=== PATIENT | female | born 1995 | race Caucasian/White ===

== ENCOUNTER 2017-05-04 22:55 | Emergency (ER) | payer OTHER ==
--- NOTE | 2017-05-05 02:05 | ED CLINICAL REPORT ---
Clinical Report - Physicians/Mid Levels [facility] [address] [place] [address] 05/04/2017 22:56 Patient: CAM SAMANIEGO Time Seen: 23:30 May 04 2017. Arrived- By private vehicle. Historian- patient. CPT: ER phys charges level 4 (#[id number]). 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 Describes the quality as stabbing, cramping and pressure. Relates location as in the upper abdomen. Notes pain level as 7/10 on arrival and 10/10 at maximum. ( Pt was seen at the clinic today and diagnosed with heartburn, states she doesn't believe it is heartburn. Her back and stomach started hurting Sunday and moved to her stomach and gave her nausea. The clinic ran a urine sample, which patient states was clear.). The patient has had nausea, vomiting, abdominal pain and back pain. She has had constipation (yesterday was last bowel movement). No diarrhea or fever. and is still present. It is described as "pain", sharp and stabbing and it is described as located in the epigastric area. At its maximum, severity described as moderate. When seen in the E.D., severity described as moderate. Modifying factors. Not worsened by anything. Not relieved by anything. The patient has had nausea and vomiting. No recent travel. Similar symptoms previously: None. Recent medical care: The patient was seen recently at another facility in a clinic (today). Seen for similar symptoms. Diagnosis: gastritis. REVIEW OF SYSTEMS The patient has had constipation and back pain. No difficulty with urination, pain with urination, urinary frequency, missed periods or fever. No sore throat, chest pain, difficulty breathing, cough or joint pain. No skin rash or chills. Denies current . All systems otherwise negative, except as recorded above. PAST HISTORY Gastroesophageal reflux disease. No history of diabetes mellitus. No history of peptic ulcer disease or gallstones. Immunizations: up-to-date. Last normal menstrual period- April 13. Denies current . Medications: Ranitidine HCl Oral 150 mg, 2x a day. Allergies: None. SOCIAL HISTORY Never smoker. No alcohol use or drug use. ADDITIONAL NOTES The nursing notes have been reviewed. PHYSICAL EXAM Vital Signs: 05/04/2017 23:11 BP: 121/65. HR: 89. RR: 17. O2 saturation: 99%. Temp: 97.8 F. Appearance: Alert. Anxious. Patient in mild distress. Eyes: Eyes normal inspection. ENT: Pharynx normal. Neck: Normal inspection. CVS: Normal heart rate and rhythm. Heart sounds normal. Pulses normal. Respiratory: No respiratory distress. Breath sounds normal. Chest nontender. Abdomen: Soft. Mild tenderness in the epigastric area. Bowel sounds normal. Back: Normal inspection. No CVA tenderness. Skin: Skin warm. Normal skin color. No rash. Extremities: Extremities exhibit normal ROM. No lower extremity edema. Neuro: Oriented X 3. No motor deficit. No sensory deficit. Reflexes normal. LABS, X-RAYS, AND EKG Laboratory Tests: Lipase: (EVETTE: 05/05/2017 00:00) ( [facility] 05/05/2017 00:16) Final results Test Result Flag Units (Reference) LIPASE 148 U/L (73-393) AMYLASE 63 U/L (25-115) UA-Culture if indicated: (EVETTE: 05/04/2017 23:10) ( [facility] 05/04/2017 23:46) Final results Test Result Flag Units (Reference) URINE COLOR YELLOW URINE APPEARANCE CLEAR URINE GLUCOSE NEGATIVE (NEGATIVE) URINE BILIRUBIN NEGATIVE (NEGATIVE) URINE KETONE NEGATIVE (NEGATIVE) URINE SPECIFIC GRAVITY >= 1.030 (1.010-1.030) URINE PH 5.5 (5.0-8.0) URINE PROTEIN NEGATIVE (NEGATIVE) URINE UROBILINOGEN 0.2 EU/dL (0.2-1.0) URINE NITRITE NEGATIVE (NEGATIVE) URINE BLOOD NEGATIVE (NEGATIVE) URINE LEUK ESTERASE NEGATIVE (NEGATIVE) URINE RBC 0-1 rbc/hpf (0-1) URINE WBC RARE wbc/hpf (0-1) URINE EPITHELIAL CELLS 0-1 EPI/hpf (0-5) URINE BACTERIA NONE SEEN (NONE SEEN) URINE COMMENT CULT NOT INDICATED URINE CULTURES ARE SET-UP BASED ON THE FOLLOWING CRITERIA:POSITIVE NITRITEPOSITIVE LEUKOCYTE ESTERASEGREATER THAN 10 WHITE BLOOD CELLSMODERATE (2+) OR GREATER BACTERIA Urine: (EVETTE: 05/04/2017 23:10) ( [facility] 05/04/2017 23:40) Final results Test Result Flag Units (Reference) URINE NEGATIVE CBC w Diff: (EVETTE: 05/04/2017 23:23) ( [facility] 05/04/2017 23:43) Final results Test Result Flag Units (Reference) WHITE BLOOD COUNT 15.0 H K/uL (4.5-11.5) RED BLOOD COUNT 4.46 M/uL (4.00-5.20) HEMOGLOBIN 13.5 gm/dL (12.0-16.0) HEMATOCRIT 39.4 % (36.0-46.0) MEAN CELL VOLUME 88 fL (80-100) MEAN CORPUSCULAR HGB 30 pg (26-34) MEAN CORPUSCULAR HGB CONC 34 g/dL (31-37) RED CELL DISTRIBUTION WIDTH 12.4 % (11.6-14.8) PLATELET COUNT 206 K/uL (150-400) LYMPH % 22.3 L % (25-40) MONO % 5.5 % (3-14) GRANULOCYTE % 72.2 (53-90) CMP: (EVETTE: 05/04/2017 23:23) ( [facility] 05/04/2017 23:46) Final results Test Result Flag Units (Reference) GLUCOSE 106 mg/dL (70-110) BUN 8 mg/dL (7-18) CREATININE 0.7 mg/dL (0.6-1.3) Estimated GFR >60 mL/min Estimated GFR- >60 mL/min Note: Persistent reduction over 3 months in eGFR<60 mL/min/1.73 m2 defines CKD. Patients with eGFR values>=60 mL/min/1.73 m2 may also have CKD if evidence ofpersistent proteinuria. Additional information may be foundat www.kidney.org. SODIUM 140 mmol/L (136-145) POTASSIUM 3.8 mmol/L (3.5-5.1) CHLORIDE 107 mmol/L (98-107) CARBON DIOXIDE 24 mmol/L (21-32) CALCIUM 8.8 mg/dL (8.5-10.1) TOTAL PROTEIN 7.3 g/dL (6.4-8.2) ALBUMIN 3.5 g/dL (3.3-5.0) BILIRUBIN, TOTAL 0.3 mg/dL (0.0-1.0) ALKALINE PHOSPHATASE 118 H U/L (46-116) AST (SGOT) 12 L U/L (15-37) ALT (SGPT) 28 U/L (12-78) . PROGRESS AND PROCEDURES Course of Care: Pt passed gas and stool in the Er and symptoms resolved. Patient is stable. The patient's symptoms are now gone. Patient/family counseled. Disposition: Discharged. Condition: stable and improved. CLINICAL IMPRESSION Functional abdominal pain: resolved Dehydration. INSTRUCTIONS Drink plenty of fluids. (Miralax, possibly magnesium citrate, 1 bottle.). Warnings: Further evaluation is necessary. GENERAL WARNINGS: Return or contact your physician immediately if your condition worsens or changes unexpectedly, if not improving as expected, or if other problems arise. Your Current Medications: CONTINUE TAKING THE FOLLOWING MEDICATIONS: Ranitidine HCl Oral : 150 mg 2x a day. Follow-up: Follow up with your doctor in one week. Call for an appointment. Understanding of the discharge instructions verbalized by patient and family. (Electronically signed by Adebayo Gaytan MD 05/06/2017 7:30)
--- NOTE | 2017-05-05 02:05 | ED CLINICAL REPORT ---
Clinical Report - Physicians/Mid Levels [facility] [address] [place] [address] 05/04/2017 22:56 Patient: CAM SAMANIEGO Time Seen: 23:30 May 04 2017. Arrived- By private vehicle. Historian- patient. CPT: ER phys charges level 4 (#[id number]). 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 Describes the quality as stabbing, cramping and pressure. Relates location as in the upper abdomen. Notes pain level as 7/10 on arrival and 10/10 at maximum. ( Pt was seen at the clinic today and diagnosed with heartburn, states she doesn't believe it is heartburn. Her back and stomach started hurting Sunday and moved to her stomach and gave her nausea. The clinic ran a urine sample, which patient states was clear.). The patient has had nausea, vomiting, abdominal pain and back pain. She has had constipation (yesterday was last bowel movement). No diarrhea or fever. and is still present. It is described as "pain", sharp and stabbing and it is described as located in the epigastric area. At its maximum, severity described as moderate. When seen in the E.D., severity described as moderate. Modifying factors. Not worsened by anything. Not relieved by anything. The patient has had nausea and vomiting. No recent travel. Similar symptoms previously: None. Recent medical care: The patient was seen recently at another facility in a clinic (today). Seen for similar symptoms. Diagnosis: gastritis. REVIEW OF SYSTEMS The patient has had constipation and back pain. No difficulty with urination, pain with urination, urinary frequency, missed periods or fever. No sore throat, chest pain, difficulty breathing, cough or joint pain. No skin rash or chills. Denies current . All systems otherwise negative, except as recorded above. PAST HISTORY Gastroesophageal reflux disease. No history of diabetes mellitus. No history of peptic ulcer disease or gallstones. Immunizations: up-to-date. Last normal menstrual period- April 13. Denies current . Medications: Ranitidine HCl Oral 150 mg, 2x a day. Allergies: None. SOCIAL HISTORY Never smoker. No alcohol use or drug use. ADDITIONAL NOTES The nursing notes have been reviewed. PHYSICAL EXAM Vital Signs: 05/04/2017 23:11 BP: 121/65. HR: 89. RR: 17. O2 saturation: 99%. Temp: 97.8 F. Appearance: Alert. Anxious. Patient in mild distress. Eyes: Eyes normal inspection. ENT: Pharynx normal. Neck: Normal inspection. CVS: Normal heart rate and rhythm. Heart sounds normal. Pulses normal. Respiratory: No respiratory distress. Breath sounds normal. Chest nontender. Abdomen: Soft. Mild tenderness in the epigastric area. Bowel sounds normal. Back: Normal inspection. No CVA tenderness. Skin: Skin warm. Normal skin color. No rash. Extremities: Extremities exhibit normal ROM. No lower extremity edema. Neuro: Oriented X 3. No motor deficit. No sensory deficit. Reflexes normal. LABS, X-RAYS, AND EKG Laboratory Tests: Lipase: (EVETTE: 05/05/2017 00:00) ( [facility] 05/05/2017 00:16) Final results Test Result Flag Units (Reference) LIPASE 148 U/L (73-393) AMYLASE 63 U/L (25-115) UA-Culture if indicated: (EVETTE: 05/04/2017 23:10) ( [facility] 05/04/2017 23:46) Final results Test Result Flag Units (Reference) URINE COLOR YELLOW URINE APPEARANCE CLEAR URINE GLUCOSE NEGATIVE (NEGATIVE) URINE BILIRUBIN NEGATIVE (NEGATIVE) URINE KETONE NEGATIVE (NEGATIVE) URINE SPECIFIC GRAVITY >= 1.030 (1.010-1.030) URINE PH 5.5 (5.0-8.0) URINE PROTEIN NEGATIVE (NEGATIVE) URINE UROBILINOGEN 0.2 EU/dL (0.2-1.0) URINE NITRITE NEGATIVE (NEGATIVE) URINE BLOOD NEGATIVE (NEGATIVE) URINE LEUK ESTERASE NEGATIVE (NEGATIVE) URINE RBC 0-1 rbc/hpf (0-1) URINE WBC RARE wbc/hpf (0-1) URINE EPITHELIAL CELLS 0-1 EPI/hpf (0-5) URINE BACTERIA NONE SEEN (NONE SEEN) URINE COMMENT CULT NOT INDICATED URINE CULTURES ARE SET-UP BASED ON THE FOLLOWING CRITERIA:POSITIVE NITRITEPOSITIVE LEUKOCYTE ESTERASEGREATER THAN 10 WHITE BLOOD CELLSMODERATE (2+) OR GREATER BACTERIA Urine: (EVETTE: 05/04/2017 23:10) ( [facility] 05/04/2017 23:40) Final results Test Result Flag Units (Reference) URINE NEGATIVE CBC w Diff: (EVETTE: 05/04/2017 23:23) ( [facility] 05/04/2017 23:43) Final results Test Result Flag Units (Reference) WHITE BLOOD COUNT 15.0 H K/uL (4.5-11.5) RED BLOOD COUNT 4.46 M/uL (4.00-5.20) HEMOGLOBIN 13.5 gm/dL (12.0-16.0) HEMATOCRIT 39.4 % (36.0-46.0) MEAN CELL VOLUME 88 fL (80-100) MEAN CORPUSCULAR HGB 30 pg (26-34) MEAN CORPUSCULAR HGB CONC 34 g/dL (31-37) RED CELL DISTRIBUTION WIDTH 12.4 % (11.6-14.8) PLATELET COUNT 206 K/uL (150-400) LYMPH % 22.3 L % (25-40) MONO % 5.5 % (3-14) GRANULOCYTE % 72.2 (53-90) CMP: (EVETTE: 05/04/2017 23:23) ( [facility] 05/04/2017 23:46) Final results Test Result Flag Units (Reference) GLUCOSE 106 mg/dL (70-110) BUN 8 mg/dL (7-18) CREATININE 0.7 mg/dL (0.6-1.3) Estimated GFR >60 mL/min Estimated GFR- >60 mL/min Note: Persistent reduction over 3 months in eGFR<60 mL/min/1.73 m2 defines CKD. Patients with eGFR values>=60 mL/min/1.73 m2 may also have CKD if evidence ofpersistent proteinuria. Additional information may be foundat www.kidney.org. SODIUM 140 mmol/L (136-145) POTASSIUM 3.8 mmol/L (3.5-5.1) CHLORIDE 107 mmol/L (98-107) CARBON DIOXIDE 24 mmol/L (21-32) CALCIUM 8.8 mg/dL (8.5-10.1) TOTAL PROTEIN 7.3 g/dL (6.4-8.2) ALBUMIN 3.5 g/dL (3.3-5.0) BILIRUBIN, TOTAL 0.3 mg/dL (0.0-1.0) ALKALINE PHOSPHATASE 118 H U/L (46-116) AST (SGOT) 12 L U/L (15-37) ALT (SGPT) 28 U/L (12-78) . PROGRESS AND PROCEDURES Course of Care: Pt passed gas and stool in the Er and symptoms resolved. Patient is stable. The patient's symptoms are now gone. Patient/family counseled. Disposition: Discharged. Condition: stable and improved. CLINICAL IMPRESSION Functional abdominal pain: resolved Dehydration. INSTRUCTIONS Drink plenty of fluids. (Miralax, possibly magnesium citrate, 1 bottle.). Warnings: Further evaluation is necessary. GENERAL WARNINGS: Return or contact your physician immediately if your condition worsens or changes unexpectedly, if not improving as expected, or if other problems arise. Your Current Medications: CONTINUE TAKING THE FOLLOWING MEDICATIONS: Ranitidine HCl Oral : 150 mg 2x a day. Follow-up: Follow up with your doctor in one week. Call for an appointment. Understanding of the discharge instructions verbalized by patient and family. (Electronically signed by Adebayo Gaytan MD 05/06/2017 7:30)
--- NOTE | 2017-05-05 02:05 | ED NURSING NOTES ---
Clinical Report - Nurses [facility] [address] [place] [address] 05/04/2017 22:56 Patient: CAM SAMANIEGO TRIAGE Triage time 23:00 May 04 2017. Acuity: LEVEL 3. Chief Complaint: ABDOMINAL PAIN. 23:11 05/04/17. Alert. No acute distress. SEPSIS SCREEN: Sepsis Screen. Negative (no infection suspected/documented). ENOC COMA SCORE: [place] Coma Scale: 15- eyes open spontaneously (4); best verbal response- oriented x 4 (5); best motor response- obeys commands (6). --23:11 Carmen Ho 23:11 05/04/17. BP: 121/65. HR: 89. RR: 17. O2 saturation: 99%. Temp: 97.8 F. Pain level now 7/10. --23:11 Carmen Ho. Weight: 68 kg stated. Height/Length: 63 inches Per Patient. BMI: 26.6. --23:08 Carmen Ho. Medications Ranitidine HCl Oral 150 mg, 2x a day. --23:02 Carmen Ho The following entry was struck by Carmen Ho, 23:08 (05/04/17) Reason - other. <<STRICKEN ENTRY-- Hydrocortisone External. --23:03 Carmen Ho --END STRIKE>> The following entry was struck by Carmen Ho, 23:08 (05/04/17) Reason - other. <<STRICKEN ENTRY-- Ketoconazole External. --23:03 Carmen Ho --END STRIKE>> The following entry was struck by Carmen Ho, 23:08 (05/04/17) Reason - other. <<STRICKEN ENTRY-- Clotrimazole External. --23:03 Carmen Ho --END STRIKE>> The following entry was struck by Carmen Ho, 23:08 (05/04/17) Reason - other. <<STRICKEN ENTRY-- Medroxyprogesterone Acetate Intramuscular. --23:03 Carmen Ho --END STRIKE>>. Medication/allergy information source: the patient. --23:11 Carmen Ho. Allergies None. --23:04 Carmen Ho. History Arrived by private vehicle. Historian: patient. Accompanied by family and mother and sister. Primary physician (May). Onset. (Sunday). Describes the quality as stabbing, cramping and pressure. Relates location as in the upper abdomen. Notes pain level as 7/10 on arrival and 10/10 at maximum. ( Pt was seen at the clinic today and diagnosed with heartburn, states she doesn't believe it is heartburn. Her back and stomach started hurting Sunday and moved to her stomach and gave her nausea. The clinic ran a urine sample, which patient states was clear.). The patient has had nausea, vomiting, abdominal pain and back pain. She has had constipation (yesterday was last bowel movement). No diarrhea or fever. 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 PAST MEDICAL HX: Gastroesophageal reflux disease. No history of diabetes mellitus. No history of peptic ulcer disease or gallstones. Immunizations: up-to-date. Last normal menstrual period- April 13. Denies current . SOCIAL HX: Never smoker. No alcohol use or drug use. No recent travel. No known contact with a sick individual. FALL RISK ASSESSMENT: Fall risk assessment completed. No fall risk identified. NUTRITIONAL RISK ASSESSMENT: The nutritional risk assessment revealed no deficiencies. FUNCTIONAL ASSESSMENT: Functional assessment: no impairments noted. LEARNING NEEDS ASSESSMENT: The learning needs assessment revealed no barriers. SKIN INTEGRITY ASSESSMENT: Skin integrity risk assessment completed. No skin integrity risk identified. --23:11 Carmen Ho. PROBLEMS: Esophagitis. --23:04 Carmen Ho. Assessment The patient states feels the same. --23:11 Carmen Ho. Interventions ID band on patient. --23:11 Carmen Ho. PHYSICAL ASSESSMENT 23:12 05/04/17. Ambulatory to room. Patient gowned. GENERAL / NEURO / PSYCH: Alert. Oriented X 4. Appears in no acute distress. HEENT: Mucous membranes are pink. RESPIRATORY: Respirations not labored. CVS: Capillary refill less than 2 seconds. GI / : Abdomen soft. Abdominal tenderness in the upper abdomen. SKIN: Skin is warm and dry. --23:12 Carmen Ho. NURSING PROGRESS NOTES 23:05/04/17. The plan of care for this patient has been created. Pulse oximeter and NIBP monitor placed on patient; monitor alarms on. Patient gowned. Head of bed elevated. Reassurance given. Two patient identifiers checked. Call light placed in reach. Side rails up x 1. Bed placed in lowest position. Brakes of bed on. Patient ready for evaluation- chart flagged and ED physician notified. --23:12 Carmen Ho 23:14 05/04/17. Patient ID band checked for patient name and birthdate: patient confirmed. Instructions provided to collect clean catch urine and patient verbalized understanding. Clean catch urine collected with return of yellow-colored clear urine; sample sent to lab. Specimen labeled in the presence of the patient. --23:14 Carmen Ho 23:26 05/04/2017 Site #1 started via IV in the right antecubital space with an 20g angiocath, with aseptic technique and good blood return; one attempt. Blood drawn: rainbow set. Labeled in the presence of the patient and sent to the lab. Saline lock flushed with 10 mL saline. --23:26 Carmen Ho 00:13 05/05/2017 Started bag #1 1000 mL IV Fluids IV NS (Saline); at 500 mL/hr over 30 minute(s) via site #1 via IV pump. Allergies verified and confirmed 5 rights. IV patency established. IV site checked: no pain, redness, or swelling. IV flushed thoroughly pre- and post-medication administration. --00:15 Carmen Ho 00:16 05/05/2017 Zofran (Ondansetron HCl) IVP 4 mg given over 30 second(s) via site #1. Allergies verified and confirmed 5 rights. IV patency established. IV site checked: no pain, redness, or swelling. IV flushed thoroughly pre- and post-medication administration. IVP given by RN. --00:16 Carmen Ho 00:17 05/05/17. BP: 120/72. HR: 95. RR: 14. O2 saturation: 99%. Pain level now 02/26. --00:17 Carmen Ho 00:31 05/05/17. ( Pt states symptoms are gone, pt will inform RN of return of pain to take GI cocktail.). --00:31 Carmen Ho 00:31 05/05/17. Pain level now 010. --00:31 Carmen Ho 01:13 05/05/17. Care transferred and report given (CAMPBELL Otero). 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 --01:36 Estela Hdz 02:40 05/05/2017 IV Fluids IV NS Discontinued: bag #1 completed upon discharge. Total amount infused: 1000 mL. IV patency established. IV site checked: no pain, redness, or swelling. IV flushed thoroughly. --04:58 Millie Ospina. DISPOSITION / DISCHARGE 02:40 05/05/17. BP: 110/65. HR: 97. RR: 20. O2 saturation: 100% on room air. Temp: deferred. Pain level now: 02/26. --04:55 Millie Ospina 02:35 05/05/2017 Site #1 removed upon discharge. Catheter intact. Bandaid applied. --04:55 Millie Ospina 02:40 05/05/17. Condition at departure: stable. The goals identified in the patient's plan of care were met. No learning barriers present. Discharge instructions provided and reviewed with the patient and family. Reviewed need for increased fluid intake. Patient verbalized understanding. Written instructions provided in [place]. ( Increase your fluids, the provider suggest you may want to take mag citrate or miralax to produce a bowel movement. Discussed diet options to promote regularity. Follow up with your PCP in one week. Return if your symptoms worsen despite rest and fluids. Patient and family verbalized understanding and had no additional questions at this time.). The patient was discharged by the physician. She was discharged home and accompanied by family. She left the Emergency Department ambulatory and via private vehicle. Family member driving. FALL RISK ASSESSMENT: Fall risk assessment completed. No fall risk identified. --04:55 Millie Ospina. Locked/Released at 05/05/2017 4:58 by Millie Ospina,
--- NOTE | 2017-05-05 02:05 | ED ORDER SUMMARY ---
..... Patient: CAM SAMANIEGO OrderSheet [facility] VisitID: [id number] [place] [address] 22y, F Registration Date/Time: 05/04/2017 ORDER SHEET Weight: 68.0 kg (stated) Allergies: None GENERAL ORDERS: UA-Culture if indicated Urgent (23:05/04/2017 ASchmuck per protocol) (Ack 23:28 RKaruga) (23:54 ASchmuck) Urine Urgent (23:05/04/2017 ASchmuck per protocol) (Ack 23:28 RKaruga) (23:54 ASchmuck) CMP Urgent (23:05/04/2017 ASchmuck per protocol) (Ack 23:29 RKaruga) (23:54 ASchmuck) CBC w Diff Urgent (23:05/04/2017 ASchmuck per protocol) (Ack 23:29 RKaruga) (23:54 ASchmuck) Lipase Urgent (00:00 05/05/2017 Medina VIDES) (Ack 0:04 RKaruga) (0:15 ASchmuck) Amylase Urgent (00:05/05/2017 Medina VIDES) (Ack 0:04 RKaruga) (0:15 ASchmuck) US Abdomen Limited (Yes) Urgent (00:05/05/2017 Medina VIDES) (Ack 0:04 RKaruga) (1:46 CBradburn R.N.) MEDICATION ORDERS: GI Cocktail WHITE PO 50 mL (after zofran working) (23:05/04/2017 Medina VIDES) (Ack 0:03 ASchmuck) (Cancelled: Change in patient condition4:57 HSoule) IV FLUIDS: IV NS : initial bolus 500 mL (1000 mL/hr), then 250 mL/hr for 3h (NOW); Routine (:05/04/2017 Medina VIDES) (Ack 0:03 ASchmuck) (0:15 ASchmuck) Zofran IV 4 mg (NOW) (:05/04/2017 Medina VIDES) (Ack 0:03 ASchmuck) (0:16 ASchmuck) ORDER SHEET NOTES: [Electronically signed by Millie Ospina (04:58 05/05/2017)] [Electronically signed by Adebayo Gaytan MD (07:30 05/06/2017)] [Electronically locked/signed by Millie Ospina (04:58 05/05/2017)]
--- NOTE | 2017-05-05 02:05 | ED ORDER SUMMARY ---
..... Patient: CAM SAMANIEGO OrderSheet [facility] VisitID: [id number] [place] [address] 22y, F Registration Date/Time: 05/04/2017 ORDER SHEET Weight: 68.0 kg (stated) Allergies: None GENERAL ORDERS: UA-Culture if indicated Urgent (23:05/04/2017 ASchmuck per protocol) (Ack 23:28 RKaruga) (23:54 ASchmuck) Urine Urgent (23:05/04/2017 ASchmuck per protocol) (Ack 23:28 RKaruga) (23:54 ASchmuck) CMP Urgent (23:05/04/2017 ASchmuck per protocol) (Ack 23:29 RKaruga) (23:54 ASchmuck) CBC w Diff Urgent (23:05/04/2017 ASchmuck per protocol) (Ack 23:29 RKaruga) (23:54 ASchmuck) Lipase Urgent (00:00 05/05/2017 Medina VIDES) (Ack 0:04 RKaruga) (0:15 ASchmuck) Amylase Urgent (00:05/05/2017 Medina VIDES) (Ack 0:04 RKaruga) (0:15 ASchmuck) US Abdomen Limited (Yes) Urgent (00:05/05/2017 Mdeina VIDES) (Ack 0:04 RKaruga) (1:46 CBradburn R.N.) MEDICATION ORDERS: GI Cocktail WHITE PO 50 mL (after zofran working) (23:05/04/2017 Medina VIDES) (Ack 0:03 ASchmuck) (Cancelled: Change in patient condition4:57 HSoule) IV FLUIDS: IV NS : initial bolus 500 mL (1000 mL/hr), then 250 mL/hr for 3h (NOW); Routine (:05/04/2017 Medina VIDES) (Ack 0:03 ASchmuck) (0:15 ASchmuck) Zofran IV 4 mg (NOW) (:05/04/2017 Medina VIDES) (Ack 0:03 ASchmuck) (0:16 ASchmuck) ORDER SHEET NOTES: [Electronically signed by Millie Ospina (04:58 05/05/2017)] [Electronically signed by Adebayo Gaytan MD (07:30 05/06/2017)] [Electronically locked/signed by Millie Ospina (04:58 05/05/2017)]
--- NOTE | 2017-05-05 05:43 | DIAGNOSTIC IMAGING REPORT ---
PROCEDURE: US ABDOMEN ULTRASOUND-LIMITED INDICATION: RUQ PAIN TECHNIQUE: Crocker scale and color Doppler sonographic images of the abdomen were obtained. COMPARISON: None. FINDINGS: Gallbladder is normal. No evidence of gallstones. Common duct is normal (2 mm). Pancreas is obscured by bowel gas. Portions of the liver, aorta, and right kidney are seen, and are normal. IMPRESSION: 1. Negative ultrasound of the gallbladder and right upper quadrant.
--- NOTE | 2017-05-06 07:30 | ED MAR SUMMARY ---
..... Medication Administration Record [facility] [address] [place] [address] Patient: CAM SAMANIEGO Visit ID: [id number] 22y, F Weight: 68.0 kg Height/Length: 63 in BMI: 26.6 ALLERGIES: None Start 00:13 05/05/2017 Carmen Ho,, Stop 02:40 05/05/2017 Millie Ospina, Medication Administered: IV NS (SALINE), Dose: IV Fluids over 30 minute(s), Rate: 500 mL/hr, Dispensed: 1000 mL bag, Site: #1 right AC. Medication Ordered: IV NS : initial bolus 500 mL (1000 mL/hr), then 250 mL/hr for 3h (NOW); Routine. Given 00:16 05/05/2017 Carmen Ho, Medication Administered: ZOFRAN [IVP] (ONDANSETRON HCL), Dose: 4 mg IVP over 30 second(s), Site: #1 right AC. Medication Ordered: Zofran IV 4 mg (NOW).
--- NOTE | 2017-05-06 07:30 | ED DISCHARGE INSTRUCTIONS ---
Patient: CAM SAMANIEGO General Instructions [facility] VisitID: [id number] [address] [place] [address] 22y, F Registration Date/Time: 05/04/2017 Functional abdominal pain: resolved Dehydration. INSTRUCTIONS Drink plenty of fluids. (Miralax, possibly magnesium citrate, 1 bottle.). Warnings: Further evaluation is necessary. GENERAL WARNINGS: Return or contact your physician immediately if your condition worsens or changes unexpectedly, if not improving as expected, or if other problems arise. Your Current Medications: CONTINUE TAKING THE FOLLOWING MEDICATIONS: Ranitidine HCl Oral : 150 mg 2x a day. Follow-up: Follow up with your doctor in one week. Call for an appointment. Understanding of the discharge instructions verbalized by patient and family. (Electronically signed by Adebayo Gaytan MD 05/06/2017 7:30)
--- NOTE | 2017-05-06 07:30 | ED MED RECONCILIATION SUMMARY ---
Patient: CAM SAMANIEGO Medication Reconciliation Report [facility] VisitID: [id number] [address] [place] [address] 22y, F Registration Date/Time: 05/04/2017 Weight: 68.0 kg Height/Length: 63 in. BMI: 26.6 ALLERGIES: None The patient's Home Medications are listed below: CONTINUE TAKING THE FOLLOWING MEDICATIONS: Ranitidine HCl Oral 150 mg, 2x a day The source(s) of the original Home Medication information: patient The following Medications were given to the patient in the Emergency Department: IV NS IV Fluids bolus 0, then 500 mL/hr, administered: 05/05/2017 12:13:00 AM Zofran [IVP] IVP 4 mg, administered: 05/05/2017 12:16:00 AM The following Medications were prescribed to the patient: None.
--- NOTE | 2017-05-06 07:30 | ED MAR SUMMARY ---
..... Medication Administration Record [facility] [address] [place] [address] Patient: CAM SAMANIEGO Visit ID: [id number] 22y, F Weight: 68.0 kg Height/Length: 63 in BMI: 26.6 ALLERGIES: None Start 00:13 05/05/2017 Carmen Ho,, Stop 02:40 05/05/2017 Millie Ospina, Medication Administered: IV NS (SALINE), Dose: IV Fluids over 30 minute(s), Rate: 500 mL/hr, Dispensed: 1000 mL bag, Site: #1 right AC. Medication Ordered: IV NS : initial bolus 500 mL (1000 mL/hr), then 250 mL/hr for 3h (NOW); Routine. Given 00:16 05/05/2017 Carmen Ho, Medication Administered: ZOFRAN [IVP] (ONDANSETRON HCL), Dose: 4 mg IVP over 30 second(s), Site: #1 right AC. Medication Ordered: Zofran IV 4 mg (NOW).
--- NOTE | 2017-05-06 07:30 | ED DISCHARGE INSTRUCTIONS ---
Patient: CAM SAMANIEGO General Instructions [facility] VisitID: [id number] [address] [place] [address] 22y, F Registration Date/Time: 05/04/2017 Functional abdominal pain: resolved Dehydration. INSTRUCTIONS Drink plenty of fluids. (Miralax, possibly magnesium citrate, 1 bottle.). Warnings: Further evaluation is necessary. GENERAL WARNINGS: Return or contact your physician immediately if your condition worsens or changes unexpectedly, if not improving as expected, or if other problems arise. Your Current Medications: CONTINUE TAKING THE FOLLOWING MEDICATIONS: Ranitidine HCl Oral : 150 mg 2x a day. Follow-up: Follow up with your doctor in one week. Call for an appointment. Understanding of the discharge instructions verbalized by patient and family. (Electronically signed by Adebayo Gaytan MD 05/06/2017 7:30)
--- NOTE | 2017-05-06 07:30 | ED MED RECONCILIATION SUMMARY ---
Patient: CAM SAMANIEGO Medication Reconciliation Report [facility] VisitID: [id number] [address] [place] [address] 22y, F Registration Date/Time: 05/04/2017 Weight: 68.0 kg Height/Length: 63 in. BMI: 26.6 ALLERGIES: None The patient's Home Medications are listed below: CONTINUE TAKING THE FOLLOWING MEDICATIONS: Ranitidine HCl Oral 150 mg, 2x a day The source(s) of the original Home Medication information: patient The following Medications were given to the patient in the Emergency Department: IV NS IV Fluids bolus 0, then 500 mL/hr, administered: 05/05/2017 12:13:00 AM Zofran [IVP] IVP 4 mg, administered: 05/05/2017 12:16:00 AM The following Medications were prescribed to the patient: None.
== END 2017-05-05 02:33 | disposition home or self-care (01) ==
LOC: ED SRH 22:55
DX: R10.13 Epigastric pain (principal); E86.0 Dehydration; K21.9 Gastro-esophageal reflux disease without esophagitis; Z79.899 Other long term (current) drug therapy
CPT/HCPCS: 90004; 90100; 92235; 92530; 93070; 95059